=== PATIENT | male | born 1965 ===

== ENCOUNTER 2020-11-09 13:09 | Outpatient (REF) | payer OTHER, SELFPAY | END 2020-11-09 13:10 | disposition home or self-care (01) | LOC: HO.HVNA 13:09 | PROVIDERS: Visit Provider Internal Medicine Hematology & Oncology | DX: Z20.828 Contact with and (suspected) exposure to other viral communicable diseases (principal) | CPT/HCPCS: U0003 ==

== ENCOUNTER 2020-11-21 09:46 | Outpatient (REF) | payer OTHER, SELFPAY | END 2020-11-21 09:47 | disposition home or self-care (01) | LOC: HO.LNP 09:46 | PROVIDERS: Visit Provider Internal Medicine Hematology & Oncology | DX: Z20.822 Contact with and (suspected) exposure to COVID-19 (principal); Z02.2 Encounter for examination for admission to residential institution | CPT/HCPCS: U0003 ==

== ENCOUNTER 2020-12-01 16:41 | Outpatient (REF) | payer OTHER, SELFPAY | END 2020-12-01 16:42 | disposition home or self-care (01) | LOC: HO.LNP 16:41 | PROVIDERS: Visit Provider Internal Medicine Hematology & Oncology | DX: Z20.822 Contact with and (suspected) exposure to COVID-19 (principal) | CPT/HCPCS: U0003 ==